=== PATIENT | male | born 1960 | race Caucasian/White ===

== ENCOUNTER 2018-11-07 08:09 | Day surgery (SDC) | payer OTHER ==
[~2018-11-07] VITALS: Ht 165.1 cm; Wt 75.6 kg
[2018-11-07 09:13] VITALS: Ht 165.1 cm; Wt 75.6 kg
[2018-11-07] MEDS ORDERED: NO HOME MEDS (10:29)
[2018-11-07] MEDS ORDERED: MIDAZOLAM 1 MG/ML 2 ML INJ ONE ×2 (10:45)
[2018-11-07] MEDS ORDERED: FENTAnyl 50 MCG/ML VIAL ONE (10:45)
[2018-11-07 10:52] VITALS: BP 110/64; PULSE 43; RESP 20
== END 2018-11-07 11:05 | disposition home or self-care (01) ==
LOC: GIL 08:09
PROVIDERS: ATTEND Internal Medicine Gastroenterology
DX: K64.8 Other hemorrhoids (principal); K63.5 Polyp of colon; R19.5 Other fecal abnormalities; E78.5 Hyperlipidemia, unspecified; Z88.0 Allergy status to penicillin; Z86.010 Personal history of colon polyps
CPT/HCPCS: 45380; 88305; J2250; J3010; Z7610